=== PATIENT | male | born 1975 | race Caucasian/White ===

== ENCOUNTER 2023-09-06 20:32 | Emergency (ER) | payer SELFPAY ==
[2023-09-06 20:40] VITALS: BP 141/80; PULSE 68; RESP 18; TEMP 98; BMI 28.6
[2023-09-06] MEDS ORDERED: LIDOCAINE 4% PATCH TP ONE (22:49)
[2023-09-06] MEDS ORDERED: CYCLOBENZAPRINE HCL 10 MG TABLET (FP) ONE (22:49)
[2023-09-06] MEDS ORDERED: KETOROLAC TROMETHAMINE 30 MG/1 ML VIAL ONE (22:49)
[2023-09-06] MEDS: KETOROLAC TROMETHAMINE 30 MG/1 ML VIAL IM ONE (22:55)
[2023-09-06] MEDS: CYCLOBENZAPRINE HCL 10 MG TABLET (FP) PO ONE (22:55)
[2023-09-06] MEDS: LIDOCAINE PATCH REMOVAL MC SCH (22:56)
[2023-09-06] MEDS: LIDOCAINE 4% PATCH TP ONE (22:56)
== END 2023-09-06 23:48 | disposition home or self-care (01) ==
LOC: JERFT 20:32
PROC: 3E0133Z Introduction of Anti-inflammatory into Subcutaneous Tissue, Percutaneous Approach (ICD-10-PCS; principal; 2023-09-06)
DX: S29.012A Strain of muscle and tendon of back wall of thorax, initial encounter (principal); R07.81 Pleurodynia; R05.9 Cough, unspecified; R10.9 Unspecified abdominal pain; W50.1XXA Accidental kick by another person, initial encounter; Y93.66 Activity, soccer
CPT/HCPCS: 71046-TC-FY; 71101-TC-RT-FY; 72100-TC-FY; 99284-25